=== PATIENT | female | born 1995 | race American Indian/Alaskan Native ===

== ENCOUNTER 2016-08-09 23:48 | Emergency (ER) | payer BC ==
[2016-08-10 00:14] LABS: Basophils % (Auto) 1.1 % (0.0-1.8); Eosinophils % (Auto) 3.2 % (0.0-4.3); Hematocrit 34.1 % (30.3-42.9); Hemoglobin 10.5 gm/dl (10.1-14.3); Mean Corpuscular HGB Conc 31 % (30-34); Mean Corpuscular Volume 75 fl (79-97); Platelet Count 311 K/mm3 (140-440); Red Blood Count 4.58 M/mm3 (3.65-5.03); Red Cell Distribution Width 17.1 % (13.2-15.2); White Blood Count 8.8 K/mm3 (4.5-11.0)
[2016-08-10 00:20] LABS: Mean Corpuscular Hemoglobin 23 pg (28-32)
[2016-08-10] MEDS ORDERED: TYLENOL PO ONE (01:57)
--- NOTE | 2016-08-10 02:00 | Emergency Department Report ---
ED Female HPI - General Chief complaint: Vaginal Bleeding Stated complaint: VAG BLEEDING W/PAIN/ABD PRESSURE Time Seen by Provider: 08/10/16 01:50 Source: patient Mode of arrival: Ambulatory Limitations: No Limitations - History of Present Illness Initial comments: This is a 20-year-old female with a long-standing history of dysmenorrhea. She indicates that she has been on control the past for this. She is also followed up with gynecology as recent as today for this condition. She indicates that sometimes her menstrual period will last 45 days. In this light , she indicates that the pain she is experiencing today is significantly different from the typical pain she has with her menstrual cramps. She states it's a similar type of pain but a much higher intensity. She feels it down low. She also feels it as a pressure when she is urinating. She denies any constipation. She reports normal appetite for more reports continued weight gain. Patient denies fevers denies vaginal discharge she does have some occasional nausea. She has taken naproxen at home with only mild improvement of pain. MD Complaint: vaginal bleeding, pelvic pain -: days(s) (2) Radiation: non-radiating Severity: severe Severity scale (0 -10): 10 Quality: cramping Consistency: constant Improves with: none Worsens with: urination, movement Associated Symptoms: vaginal bleeding, dysuria (actually with urination it makes the pelvic pain worse). denies: vaginal discharge, fever/chills, headaches, loss of appetite - Related Data Previous Rx's Medication Instructions Recorded Last Taken Type HYDROcodone/APAP 5-325 [[place] 1 each PO Q4HR PRN #20 tablet 08/10/16 Unknown Rx 5-325 mg TAB] Naproxen [Naprosyn] 375 mg PO BID #30 tablet 08/10/16 Unknown Rx Allergies Allergy/AdvReac Type Severity Reaction Status Date / Time No Known Allergies Allergy Verified 08/09/16 23:53 ED Review of Systems ROS: Stated complaint: VAG BLEEDING W/PAIN/ABD PRESSURE Other details as noted in HPI Constitutional: denies: chills, fever Eyes: denies: eye pain, eye discharge, vision change ENT: denies: ear pain, throat pain Respiratory: denies: cough, shortness of breath, wheezing Cardiovascular: denies: chest pain, palpitations Endocrine: no symptoms reported Gastrointestinal: abdominal pain, nausea. denies: diarrhea Genitourinary: dysuria, abnormal menses. denies: urgency, discharge Musculoskeletal: denies: back pain, joint swelling, arthralgia Skin: denies: rash, lesions Neurological: denies: headache, weakness, paresthesias Psychiatric: denies: anxiety, depression Hematological/Lymphatic: denies: easy bleeding, easy bruising ED Past Medical Hx - Past Medical History Previous Medical History?: No Hx Asthma: Yes - Surgical History Past Surgical History?: No - Social History Smoking Status: Never Smoker Substance Use Type: Alcohol - Medications Home Medications: Home Medications Medication Instructions Recorded Confirmed Last Taken Type HYDROcodone/APAP 5-325 [[place] 1 each PO Q4HR PRN #20 tablet 08/10/16 Unknown Rx 5-325 mg TAB] Naproxen [Naprosyn] 375 mg PO BID #30 tablet 08/10/16 Unknown Rx ED Physical Exam - General Limitations: No Limitations General appearance: alert, in distress (due to pains), obese - Head Head exam: Present: atraumatic, normocephalic - Eye Eye exam: Present: normal appearance - ENT ENT exam: Present: normal exam, normal orophraynx, mucous membranes moist - Neck Neck exam: Present: normal inspection - Respiratory Respiratory exam: Present: normal lung sounds bilaterally. Absent: respiratory distress - Cardiovascular Cardiovascular Exam: Present: regular rate, normal rhythm. Absent: systolic murmur, diastolic murmur, rubs, gallop - GI/Abdominal GI/Abdominal exam: Present: soft, tenderness (suprapubic region.), normal bowel sounds. Absent: guarding - Extremities Exam Extremities exam: Present: normal inspection - Back Exam Back exam: Present: normal inspection. Absent: CVA tenderness (R), CVA tenderness (L), paraspinal tenderness, vertebral tenderness - Neurological Exam Neurological exam: Present: alert, oriented X3 - Psychiatric Psychiatric exam: Present: normal affect, normal mood - Skin Skin exam: Present: warm, dry, intact, normal color. Absent: rash ED Course Vital Signs 08/09/16 08/10/16 08/10/16 23:54 02:20 05:35 Temperature 98.0 F 98.1 F Pulse Rate 109 H 94 H 96 H Respiratory 28 H 18 18 Rate Blood Pressure 161/109 Blood Pressure 134/86 120/82 [Right] O2 Sat by Pulse 100 100 100 Oximetry - Reevaluation(s) Reevaluation #1: 08/10/16 02:03 HCG is negative. CBC with normal hemoglobin. Abdominal examination is nonsurgical for me here. Will obtain pelvic ultrasound to rule out ovarian torsion. Pain is not so lateralized though. I suspect this is menstrual- related pains. In regards to her continued problem I do feel that she needs continued gynecology follow-up and probably some type of ocp medication. Reevaluation #2: 08/10/16 05:14 Etiology for patient's pelvic discomfort is not clear. Suspicion for possible endometriosis given the free fluid in the pelvis without other obvious etiology. This would correlate well with the patient's long-standing history of dysmenorrhea as well. I do feel that some type of oral contraceptive therapy would be appropriate for her. 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 ED Medical Decision Making - Lab Data Result diagrams: 08/10/16 00:03 - Radiology Data #1 endometrium demonstrates mild thickening. Number to the right ovary demonstrates no ultrasound abnormalities #3 the left ovary cannot be identified. #4 there is moderate amount of nonspecific free fluid in the pelvis in the midline in the cul-de-sac and adjacent to the right ovary and in the left adnexal area. Critical care attestation.: If time is entered above; I have spent that time in minutes in the direct care of this critically ill patient, excluding procedure time. ED Disposition Clinical Impression: Pelvic pain Disposition: DISCHARGED TO HOME OR SELFCARE Is pt being admited?: No Does the pt Need Aspirin: No Condition: Stable Instructions: Endometriosis (ED) Additional Instructions: Follow with your film printer. Prescriptions: HYDROcodone/APAP 5-325 [[place] 5-325 mg TAB] 1 each PO Q4HR PRN #20 tablet PRN Reason: Pain Naproxen [Naprosyn] 375 mg PO BID #30 tablet Referrals: PRIMARY CARE, [Primary Care Provider] - 3-5 Days Time of Disposition: 05:18
--- NOTE | 2016-08-10 05:05 | Ultrasound Report ---
FINAL REPORT PROCEDURE: US PELVIS TRANSVAGINAL WITH DOPPLER TECHNIQUE: Real-time transabdominal sonography in multiple planes of the pelvis was performed. The pelvic structures were not optimally visualized. Transvaginal sonography was then performed to better evaluate the structures and/or abnormalities described below with image documentation. Grayscale, color flow Doppler imaging and velocity spectral waveform analysis of the ovaries was employed (duplex imaging). CPT 93783, 15258, and 76490 HISTORY: Pain. Dysfunctional uterine bleeding. COMPARISON: No prior studies are available for comparison. FINDINGS: The uterus measures 7.5 x 3.4 x 3.6 centimeters. The endometrium is moderately thick throughout its entire aspect measuring up to 1.0 centimeter. The right ovary measures 3.4 x 2.1 x 3.1 centimeters and shows small normal-appearing follicles. The right ovary shows no ultrasound abnormality. Blood flow seen to the right ovary by color Doppler. The left ovary cannot be identified. This may be due to overlying bowel gas. There is a moderate amount of nonspecific free fluid posterior cul-de-sac and adjacent to the right ovary and near the left adnexal area. IMPRESSION: 1. The endometrium of the uterus demonstrates moderate thickening measuring up to 1.0 centimeter. This is nonspecific and could be due to the stage of the menstrual cycle and or related to uterine bleeding. 2. The right ovary demonstrates no ultrasound abnormality. 3. The left ovary cannot be identified and is therefore not evaluated. This in part could be due to some overlying bowel gas. 4. There is a moderate amount nonspecific free fluid in the pelvis in the midline in the cul-de-sac and adjacent to the right ovary and in the left adnexal area
--- NOTE | 2016-08-10 05:16 | Ultrasound Report ---
FINAL REPORT PROCEDURE: US PELVIC TRANSABDOMINAL WITH DOPPLER TECHNIQUE: Real-time transabdominal sonography in multiple planes of the pelvis was performed with image documentation. Grayscale, color flow Doppler imaging and velocity spectral waveform analysis of the ovaries was employed (duplex imaging). CPT 97716 and 28700 HISTORY: Pelvic pain and dysfunctional uterine bleeding COMPARISON: No prior studies are available for comparison. FINDINGS: The uterus measures 7.5 x 3.4 x 3.6 centimeters. The endometrium is moderately thick throughout its entire aspect measuring up to 1.0 centimeter. The right ovary measures 3.4 x 2.1 x 3.1 centimeters and shows small normal-appearing follicles. The right ovary shows no ultrasound abnormality. Blood flow seen to the right ovary by color Doppler. The left ovary cannot be identified. This may be due to overlying bowel gas. There is a moderate amount of nonspecific free fluid posterior cul-de-sac and adjacent to the right ovary and near the left adnexal area. IMPRESSION: 1. The endometrium of the uterus demonstrates moderate thickening measuring up to 1.0 centimeter. This is nonspecific and could be due to the stage of the menstrual cycle and or related to uterine bleeding. 2. The right ovary demonstrates no ultrasound abnormality. 3. The left ovary cannot be identified and is therefore not evaluated. This in part could be due to some overlying bowel gas. 4. There is a moderate amount nonspecific free fluid in the pelvis in the midline in the cul-de-sac and adjacent to the right ovary and in the left adnexal area.
[2016-08-10 05:35] LABS: Bilirubin,Urine NEG (Negative); Blood,Urine LG (Negative); Ketones,Urine NEG (Negative); Leukocyte Esterase,Urine NEG (Negative); Nitrite,Urine NEG (Negative); Urobilinogen,Urine < 2.0 mg/dL (<2.0)
[2016-08-10 05:36] VITALS: BP 120/82
[2016-08-10 05:37] LABS: RBC,Urine > 182.0 /HPF (0.0-6.0)
[2016-08-10] MEDS ORDERED: MOTRIN PO ONE (05:44)
== END 2016-08-10 06:01 | disposition home or self-care (01) ==
LOC: ED 23:48
DX: R10.2 Pelvic and perineal pain (principal); R30.0 Dysuria; J45.909 Unspecified asthma, uncomplicated
CPT/HCPCS: 36415; 76830; 76856; 81001; 84702; 85025; 99284

== ENCOUNTER 2017-01-09 08:38 | Emergency (ER) | payer BC ==
[2017-01-09 08:51] VITALS: BP 159/105
[2017-01-09 09:14] LABS: Urine Drugs of Abuse Note Disclamer
[2017-01-09 09:29] LABS: Anion Gap 16 mmol/L; BUN/Creatinine Ratio 17.14; Blood Urea Nitrogen 12 mg/dL (7-17); Calcium 8.7 mg/dL (8.4-10.2); Carbon Dioxide 27 mmol/L (22-30); Chloride 101.2 mmol/L (98-107); Glucose 87 mg/dL (65-100); Potassium 4.1 mmol/L (3.6-5.0); Sodium 140 mmol/L (137-145)
[2017-01-09 09:31] LABS: Bilirubin,Urine NEG (Negative); Blood,Urine MOD (Negative); Ketones,Urine NEG (Negative); Leukocyte Esterase,Urine NEG (Negative); Mucus,Urine FEW /HPF; Nitrite,Urine NEG (Negative); Protein,Urine <15 mg/dL mg/dL (Negative); Urobilinogen,Urine < 2.0 mg/dL (<2.0)
[2017-01-09 09:33] LABS: Basophils % (Auto) 0.8 % (0.0-1.8); Eosinophils % (Auto) 2.5 % (0.0-4.3); Hemoglobin 10.6 gm/dl (10.1-14.3); Mean Corpuscular HGB Conc 31 % (30-34); Mean Corpuscular Hemoglobin 21 pg (28-32); Mean Corpuscular Volume 69 fl (79-97); Platelet Count 351 K/mm3 (140-440); Red Blood Count 4.94 M/mm3 (3.65-5.03); Red Cell Distribution Width 20.7 % (13.2-15.2); White Blood Count 7.9 K/mm3 (4.5-11.0)
--- NOTE | 2017-01-09 11:37 | Emergency Department Report ---
ED Anxiety HPI - General Chief Complaint: Anxiety Stated Complaint: ANXIETY/POSS DEPRESSION Time Seen by Provider: 01/09/17 11:25 Source: patient Mode of arrival: Ambulatory - History of Present Illness Initial Comments: 19-year-old female here with complaint of feeling overwhelmed. Patient states that she's had significant amount of stress in her life lately and was unable to go to work yesterday. She is very tearful during interview. She denies any other complaints. She denies suicidality or homicidal ideations. Of note she mentions that her blood pressures been running high lately. MD Complaint: anxiety -: Gradual Symptoms: palpitations Place: work Severity: moderate Quality: intermittant Provoking factors: emotional stress, work/job stress Improves With: nothing Worsens With: nothing Associated symptoms: palpitations. denies: chest pain, shortness of breath, cough, fever/chills, headaches, rash, seizure, syncope - Related Data Home Medications: Previous Rx's Medication Instructions Recorded Last Taken Type HYDROcodone/APAP 5-325 [[place] 1 each PO Q4HR PRN #20 tablet 08/10/16 Unknown Rx 5-325 mg TAB] Naproxen [Naprosyn] 375 mg PO BID #30 tablet 08/10/16 Unknown Rx Allergies/Adverse Reactions: Allergies Allergy/AdvReac Type Severity Reaction Status Date / Time No Known Allergies Allergy Verified 08/09/16 23:53 ED Review of Systems ROS: Stated complaint: ANXIETY/POSS DEPRESSION Other details as noted in HPI Comment: All other systems reviewed and negative Constitutional: denies: chills, fever Eyes: denies: eye pain, eye discharge, vision change ENT: denies: ear pain, throat pain Respiratory: denies: cough, shortness of breath, wheezing Cardiovascular: denies: chest pain, palpitations Endocrine: no symptoms reported Gastrointestinal: denies: abdominal pain, nausea, diarrhea Genitourinary: denies: urgency, dysuria, discharge Musculoskeletal: denies: back pain, joint swelling, arthralgia Skin: denies: rash, lesions Neurological: denies: headache, weakness, paresthesias Psychiatric: denies: anxiety, depression Hematological/Lymphatic: denies: easy bleeding, easy bruising ED Past Medical Hx - Past Medical History Previous Medical History?: Yes Hx Asthma: Yes Additional medical history: PCOS - Surgical History Past Surgical History?: No - Family History Family history: no significant - Social History Smoking Status: Current Some Day Smoker Substance Use Type: Alcohol, Non Opiate Pain, Prescribed - Medications Home Medications: Home Medications Medication Instructions Recorded Confirmed Last Taken Type HYDROcodone/APAP 5-325 [[place] 1 each PO Q4HR PRN #20 tablet 08/10/16 Unknown Rx 5-325 mg TAB] Naproxen [Naprosyn] 375 mg PO BID #30 tablet 08/10/16 Unknown Rx ED Physical Exam - General Limitations: No Limitations General appearance: alert, in no apparent distress, obese - Head Head exam: Present: atraumatic, normocephalic - Eye Eye exam: Present: normal appearance - ENT ENT exam: Present: mucous membranes moist - Neck Neck exam: Present: normal inspection - Respiratory Respiratory exam: Present: normal lung sounds bilaterally. Absent: respiratory distress - Cardiovascular Cardiovascular Exam: Present: regular rate, normal rhythm. Absent: systolic murmur, diastolic murmur, rubs, gallop - GI/Abdominal GI/Abdominal exam: Present: soft, normal bowel sounds - Extremities Exam Extremities exam: Present: normal inspection - Back Exam Back exam: Present: normal inspection - Neurological Exam Neurological exam: Present: alert, oriented X3 - Psychiatric Psychiatric exam: Present: normal affect, normal mood, depressed, anxious. Absent: homicidal ideation, suicidal ideation - Skin Skin exam: Present: warm, dry, intact, normal color. Absent: rash ED Course Vital Signs 01/09/17 08:44 Temperature 98.5 F Pulse Rate 105 H Respiratory 20 Rate Blood Pressure 159/105 O2 Sat by Pulse 100 Oximetry ED Medical Decision Making - Lab Data Result diagrams: 01/09/17 09:02 01/09/17 09:02 Laboratory Results - last 24 hr 01/09/17 01/09/17 01/09/17 09:02 09:02 09:02 WBC 7.9 RBC 4.94 Hgb 10.6 Hct 34.0 MCV 69 L MCH 21 L MCHC 31 RDW 20.7 H Plt Count 351 Lymph % (Auto) 39.4 H [place] % (Auto) 6.3 Eos % (Auto) 2.5 Baso % (Auto) 0.8 Lymph # 3.1 [place] # 0.5 Eos # 0.2 Baso # 0.1 Seg Neutrophils % 51.0 Seg Neutrophils # 4.1 Sodium 140 Potassium 4.1 Chloride 101.2 Carbon Dioxide 27 Anion Gap 16 BUN 12 Creatinine 0.7 Estimated GFR > 60 BUN/Creatinine Ratio 17.14 Glucose 87 Calcium 8.7 Urine Color Urine Turbidity Urine pH Ur Specific [place] Urine Protein Urine Glucose (UA) Urine Ketones Urine Blood Urine Nitrite Ur Reducing Substances Urine Bilirubin Urine Ictotest Urine Urobilinogen Ur Leukocyte Esterase Urine WBC (Auto) Urine RBC (Auto) U Epithel Cells (Auto) Urine Mucus Urine HCG, Qual Urine Opiates Screen Urine Methadone Screen Ur Barbiturates Screen Ur Phencyclidine Scrn Ur Amphetamines Screen U Benzodiazepines Scrn Urine Cocaine Screen U Marijuana (THC) Screen Drugs of Abuse Note Plasma/Serum Alcohol < 0.01 01/09/17 01/09/17 09:04 09:04 WBC RBC Hgb Hct MCV MCH MCHC RDW Plt Count Lymph % (Auto) [place] % (Auto) Eos % (Auto) Baso % (Auto) Lymph # [place] # Eos # Baso # Seg Neutrophils % Seg Neutrophils # Sodium Potassium Chloride Carbon Dioxide Anion Gap BUN Creatinine Estimated GFR BUN/Creatinine Ratio Glucose Calcium Urine Color Yellow Urine Turbidity Clear Urine pH 6.0 Ur Specific [place] 1.019 Urine Protein <15 mg/dl Urine Glucose (UA) Neg Urine Ketones Neg Urine Blood Mod Urine Nitrite Neg Ur Reducing Substances Not Reportable Urine Bilirubin Neg Urine Ictotest Not Reportable Urine Urobilinogen < 2.0 Ur Leukocyte Esterase Neg Urine WBC (Auto) 3.0 Urine RBC (Auto) 4.0 U Epithel Cells (Auto) 6.0 Urine Mucus Few Urine HCG, Qual Negative Urine Opiates Screen Presumptive negative Urine Methadone Screen Presumptive negative Ur Barbiturates Screen Presumptive negative Ur Phencyclidine Scrn Presumptive negative Ur Amphetamines Screen Presumptive negative U Benzodiazepines Scrn Presumptive negative Urine Cocaine Screen Presumptive negative U Marijuana (THC) Screen Presumptive negative Drugs of Abuse Note Disclamer Plasma/Serum Alcohol Critical care attestation.: If time is entered above; I have spent that time in minutes in the direct care of this critically ill patient, excluding procedure time. ED Disposition Clinical Impression: Anxiety Disposition: DC-01 TO HOME OR SELFCARE Is pt being admited?: No Condition: Stable Instructions: Anxiety (ED), Stress (ED) Additional Instructions: Please follow up with counseling. Follow up with [facility] as needed. Referrals: PRIMARY CARE, [Primary Care Provider] - 3-5 Days Forms: Work/School Release Form(ED)
== END 2017-01-09 11:45 | disposition home or self-care (01) ==
LOC: ED 08:38
DX: F41.9 Anxiety disorder, unspecified (principal); J45.909 Unspecified asthma, uncomplicated; F17.200 Nicotine dependence, unspecified, uncomplicated
CPT/HCPCS: 36415; 80048; 80307; 81001; 81025; 85025; 99284; G0480; 80320

== ENCOUNTER 2017-06-03 23:05 | Emergency (ER) | payer BC ==
[2017-06-03 23:58] VITALS: BP 152/101
[2017-06-04 00:20] LABS: Basophils % (Auto) 0.8 % (0.0-1.8); Eosinophils % (Auto) 2.3 % (0.0-4.3); Mean Corpuscular HGB Conc 30 % (30-34); Platelet Count 341 K/mm3 (140-440); Red Blood Count 5.15 M/mm3 (3.65-5.03); White Blood Count 10.2 K/mm3 (4.5-11.0)
[2017-06-04 00:35] LABS: Anion Gap 18 mmol/L; BUN/Creatinine Ratio 23; Blood Urea Nitrogen 14 mg/dL (7-17); Calcium 8.9 mg/dL (8.4-10.2); Carbon Dioxide 26 mmol/L (22-30); Chloride 101.1 mmol/L (98-107); Glucose 107 mg/dL (65-100); Potassium 4.4 mmol/L (3.6-5.0); Sodium 141 mmol/L (137-145)
[2017-06-04 00:42] LABS: Hematocrit 35.6 % (30.3-42.9); Hemoglobin 10.8 gm/dl (10.1-14.3); Mean Corpuscular Hemoglobin 21 pg (28-32); Mean Corpuscular Volume 69 fl (79-97)
[2017-06-04 03:12] LABS: Bilirubin,Urine NEG (Negative); Blood,Urine NEG (Negative); Ketones,Urine NEG (Negative); Leukocyte Esterase,Urine TR (Negative); Mucus,Urine FEW /HPF; Nitrite,Urine NEG (Negative); Protein,Urine <15 mg/dL mg/dL (Negative); Urobilinogen,Urine < 2.0 mg/dL (<2.0)
== END 2017-06-04 00:40 | disposition left against medical advice (07) ==
LOC: ED 23:05
DX: R07.9 Chest pain, unspecified (principal); Z53.21 Procedure and treatment not carried out due to patient leaving prior to being seen by health care provider
CPT/HCPCS: 36415; 80048; 81001; 84484; 84703; 85025; 93005; 93010